=== PATIENT | female | born 1950 | race Two or more races ===

== ENCOUNTER 2024-05-29 09:53 | Emergency (ER) | payer OTHER ==
[~2024-05-29] VITALS: Ht 154.9 cm; Wt 80.7 kg
[2024-05-29] MEDS ORDERED: TRULICITY4.5 MG/0.5 SQ (10:15)
[2024-05-29] MEDS ORDERED: TOUJEO MAX300 UNIT/1 SQ (10:15)
[2024-05-29] MEDS ORDERED: SIMVASTATIN40 MG PO (10:15)
[2024-05-29] MEDS ORDERED: SYNJARDY XR 121 EACH PO (10:15)
[2024-05-29] MEDS ORDERED: HYDROCHLOROTH12.5 M2 PO (10:15)
[2024-05-29] MEDS ORDERED: LISINOPRIL20 MG PO (10:15)
[2024-05-29 11:56] LABS: HEMATOCRIT 41.8 % (36.0-45.00); MEAN CELL VOLUME 92.9 fL (80.00-100.00); MEAN CORPUSCULAR HEMOGLOBIN 31.2 pg (27.00-32.0); MEAN CORPUSCULAR HGB CONC 33.6 g/dl (32.0-36.0); PLATELET COUNT 248 K/uL (150-450)
[2024-05-29 13:02] LABS: PH,URINE 5.5 (5.0-8.0); URINE APPEARANCE Turbid; URINE BILIRRUBIN Negative (NEGATIVE); URINE BLOOD Moderate; URINE COLOR Dark Yellow; URINE KETONE Negative (NEGATIVE); URINE LEUKOCYTE Moderate; URINE NITRATE Positive; URINE PROTEIN 30 (NEGATIVE)
[2024-05-29 13:28] LABS: URINE CAST 1.91 uL (0.0-1.40); URINE EPITHELIAL CELLS 12.1 uL (0.0-38.8); URINE RBC 5.7 uL (0.0-20.8)
[2024-05-29 13:37] LABS: URINE BACTERIA > 9821.5 uL (0.0-1933); URINE GLUCOSE >=1000 MG/DL (NEGATIVE); URINE WBC > 5548.3 uL (0.0-23.2)
[2024-05-29] MEDS ORDERED: KETOROLAC TROMETHAMINE 60 MG VIAL IM STA (13:47)
== END 2024-05-29 15:12 | disposition home or self-care (01) ==
LOC: ER 09:56
DX: N39.0 Urinary tract infection, site not specified (principal); I10 Essential (primary) hypertension; B96.29 Other Escherichia coli [E. coli] as the cause of diseases classified elsewhere; Z16.11 Resistance to penicillins